=== PATIENT | female | born 2000 | race African-American/Black ===

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

== ENCOUNTER 2020-07-20 18:28 | Emergency (ER) | payer BC ==
[2020-07-20 19:56] LABS: #Lymphocytes 1.3 thou/uL (1.20-3.40); #Monocytes 0.9 thou/uL (0.11-0.59); #Neutrophils 5.4 thou/uL (1.40-6.50); %Basophils 0.6 % (0.0-1.0); %Eosinophils 0.6 % (0.0-10.0); %Lymphocytes 17.5 % (28.0-48.0); %Neutrophils 70.3 % (31.0-61.0); Hemoglobin 13.2 g/dL (12.0-16.0); Mean Corpuscular HGB CONC 31.7 g/dL (32.0-36.0); Mean Corpuscular Hemoglobin 26.6 pg (25.0-35.0); Mean Corpuscular Volume 83.9 fL (78.0-98.0); Mean Platelet Volume 8.9 fL (7.4-10.4); Platelet Count 286 thou/uL (130-400); RBC Distribution Width 12.6 % (11.5-14.5); Red Blood Cell (RBC) Count 4.97 mill/uL (4.00-5.20); White Blood Cell (WBC) Count 7.7 thou/uL (4.8-10.8)
[2020-07-20 20:04] LABS: BHCG - Serum Negative (NEGATIVE); Pregs Control Background? CLEAR/WHITE (CLR/WHITE); Pregs Control Bar Appear? YES (CONTROL BAR)
[2020-07-20 20:20] LABS: Albumin 3.9 g/dL (3.5-5.0)
[2020-07-20 20:21] LABS: Chloride 105 mmol/L (98-107); Sodium 137 mmol/L (136-145)
[2020-07-20 20:22] LABS: Glucose 75 mg/dL (70-105)
[2020-07-20 20:23] LABS: Globulin 3.4 g/dL (2.4-3.5); Protein, Total 7.3 g/dL (6.0-8.3)
[2020-07-20 20:24] LABS: Anion Gap 17 mmol/L (10-20); Bilirubin, Total 0.2 mg/dL (0.2-1.2); Carbon Dioxide 19 mmol/L (22-29)
[2020-07-20 20:25] LABS: Alkaline Phosphatase 43 U/L (40-100)
[2020-07-20 20:26] LABS: Calc. Creatinine Clearance 0 mL/min (70-130)
[2020-07-20 20:27] LABS: BUN (Urea Nitrogen) 14 mg/dL (8.4-21.0)
[2020-07-20 20:28] LABS: ALT (SGPT) 11 U/L (8-55); AST (SGOT) 15 U/L (5-30)
[2020-07-20] MEDS ORDERED: Ketorolac Tromethamine 30 MG/ML VIAL ONE (20:59)
== END 2020-07-20 21:48 | disposition home or self-care (01) ==
LOC: ERS 18:28
DX: M79.10 Myalgia, unspecified site (principal)
CPT/HCPCS: 36415; 80053; 84443; 84703; 85025; 96372; 99283; J1885

== ENCOUNTER 2020-11-11 04:12 | Emergency (ER) | payer BC | END 2020-11-11 05:28 | disposition home or self-care (01) | LOC: ERS 04:12 | DX: J06.9 Acute upper respiratory infection, unspecified (principal); Z71.6 Tobacco abuse counseling | CPT/HCPCS: 71045; 99406 ==